=== PATIENT | male | born 1960 | race Caucasian/White ===

== ENCOUNTER 2017-10-14 08:19 | Day surgery (SDC) | payer OTHER, BC ==
[~2017-10-14] VITALS: Ht 175.3 cm; Wt 96.2 kg
[~2017-10-14 08:19] MED LIST: ASPI325; ATOR10; Depo-Testos200 MG/ML; LIPIODOL10 ML; Metamucil Smooth1 EA
== END 2017-10-14 10:41 | disposition home or self-care (01) ==
LOC: ORSCSDS 08:19
PROVIDERS: Internal Medicine Gastroenterology
PROC: 0DBM8ZX Excision of Descending Colon, Via Natural or Artificial Opening Endoscopic, Diagnostic (ICD-10-PCS; principal; 2017-10-14 09:45)
PROC: 0DBH8ZX Excision of Cecum, Via Natural or Artificial Opening Endoscopic, Diagnostic (ICD-10-PCS; principal; 2017-10-14 09:45)
PROC: 0DBK8ZX Excision of Ascending Colon, Via Natural or Artificial Opening Endoscopic, Diagnostic (ICD-10-PCS; principal; 2017-10-14 09:45)
PROC: 0DBL8ZX Excision of Transverse Colon, Via Natural or Artificial Opening Endoscopic, Diagnostic (ICD-10-PCS; principal; 2017-10-14 09:45)
PROC: 0DB58ZX Excision of Esophagus, Via Natural or Artificial Opening Endoscopic, Diagnostic (ICD-10-PCS; 2017-10-14 09:45)
DX: K21.9 Gastro-esophageal reflux disease without esophagitis (principal); D12.3 Benign neoplasm of transverse colon; D12.2 Benign neoplasm of ascending colon; D12.4 Benign neoplasm of descending colon; D12.0 Benign neoplasm of cecum; K57.30 Diverticulosis of large intestine without perforation or abscess without bleeding; K44.9 Diaphragmatic hernia without obstruction or gangrene; K20.9 Esophagitis, unspecified; K31.5 Obstruction of duodenum; K64.8 Other hemorrhoids; Z12.11 Encounter for screening for malignant neoplasm of colon; Z80.0 Family history of malignant neoplasm of digestive organs; F17.220 Nicotine dependence, chewing tobacco, uncomplicated; K74.60 Unspecified cirrhosis of liver; G47.30 Sleep apnea, unspecified; E78.5 Hyperlipidemia, unspecified; Z79.82 Long term (current) use of aspirin; Z79.899 Other long term (current) drug therapy
CPT/HCPCS: 88305; 88342; J2405; J7120

== ENCOUNTER 2018-06-27 06:41 | Day surgery (SDC) | payer OTHER, BC ==
--- NOTE | 2018-06-27 09:36 | NUR ---
PT INTO STEP VIA OTIS. A&OX3. VS WDL. PT STATES PAIN TO RIGHT CHEST WALL 2/10 WHICH IS "BEARABLE." BANDAIDE INTACT TO RIGHT CHEST. NO BLEEDING OR HEMATOMA. MIKAL INITIATED.
--- NOTE | 2018-06-27 10:12 | NUR ---
UP TO BRP WITHOUT DIFFICULTY. RIGHT CHEST WALL BANDAIDE REMAINS C/D/I.
--- NOTE | 2018-06-27 10:35 | NUR ---
DR. WETZEL AT BEDSIDE. UPDATED TO CURRENT VS AND STATUS. MD MADE AWARE THAT PT HAS BEEN HYPERTENSIVE. NO NEW ORDERS AT THIS TIME.
--- NOTE | 2018-06-27 11:31 | NUR ---
Patient up to Ambulate independently. Gait steady. Discharge instructions reviewed with patient. Patient verbalizes understanding. Copy given to patient to take home. Discharged via wheelchair to private car for ride home.
--- NOTE | 2018-06-30 07:14 | NUR ---
EDITED PROCEDURE FOR PURPOSES OF VERIFICATION.
== END 2018-06-27 11:30 | disposition home or self-care (01) ==
LOC: US 06:41
DX: K75.81 Nonalcoholic steatohepatitis (NASH) (principal); R94.5 Abnormal results of liver function studies
CPT/HCPCS: 47000; 76942; 88307; 88313

== ENCOUNTER 2021-07-10 09:51 | Day surgery (SDC) | payer OTHER, BC ==
[~2021-07-10] VITALS: Ht 175.3 cm; Wt 97.3 kg
[~2021-07-10 09:51] MED LIST changes: +LIVALO2 MG; +OMEP20ER PO
[2021-07-10] MEDS ORDERED: ASPIR 8181 MG (10:34)
== END 2021-07-10 12:20 | disposition home or self-care (01) ==
LOC: ORSCSDS 09:51
PROVIDERS: Internal Medicine Gastroenterology
PROC: 0DBL8ZX Excision of Transverse Colon, Via Natural or Artificial Opening Endoscopic, Diagnostic (ICD-10-PCS; principal; 2021-07-10 11:15)
PROC: 0DBM8ZX Excision of Descending Colon, Via Natural or Artificial Opening Endoscopic, Diagnostic (ICD-10-PCS; principal; 2021-07-10 11:15)
PROC: 0DBK8ZX Excision of Ascending Colon, Via Natural or Artificial Opening Endoscopic, Diagnostic (ICD-10-PCS; principal; 2021-07-10 11:15)
DX: Z12.11 Encounter for screening for malignant neoplasm of colon (principal); Z86.010 Personal history of colon polyps; D12.3 Benign neoplasm of transverse colon; D12.2 Benign neoplasm of ascending colon; D12.4 Benign neoplasm of descending colon; K74.60 Unspecified cirrhosis of liver; K57.30 Diverticulosis of large intestine without perforation or abscess without bleeding; E66.9 Obesity, unspecified; K21.9 Gastro-esophageal reflux disease without esophagitis; Z68.33 Body mass index [BMI] 33.0-33.9, adult; Z79.899 Other long term (current) drug therapy; Z79.82 Long term (current) use of aspirin
CPT/HCPCS: 88305; J2704; J7120

== ENCOUNTER 2024-03-20 09:39 | Day surgery (SDC) | payer OTHER, BC ==
[~2024-03-20] VITALS: Ht 175.3 cm; Wt 92.8 kg
[~2024-03-20 09:39] MED LIST changes: +ASPIR 8181 MG PO; -LIVALO2 MG; +LIVALO2 MG PO; +Lactated Ringer's 1,000 ML IV SCH; +TAMS.4ER PO
[2024-03-20 10:09] VITALS: BP 155/89
--- NOTE | 2024-03-20 10:19 | NUR ---
Ambulatory in Day Surgery History, Chart, Medications and Allergies reviewed before start of procedure. Pre-Op teaching done. Pt verbalizes understanding. Patient States Post-Procedure ride home has been arranged.
[2024-03-20] MEDS ORDERED: propofoL 50 ML IV ONE (10:34)
--- NOTE | 2024-03-20 10:41 | NUR ---
03/20/24 1041 Margaret Maldonado History, Chart, Medications and Allergies reviewed before start of procedure. MONITOR INTACT WITH CONTINUOUS PULSE OXIMETRY, CONTINUOUS END TITAL CO2, AND INTERMITTENT BLOOD PRESSURE. Bite Block Placed. PATIENT DETERMINED TO BE ASA APPROPRIATE FOR PROPOFOL SEDATION PRIOR TO START OF PROCEDURE BY DR. HICKS.
[2024-03-20 11:09] VITALS: BP 97/67
--- NOTE | 2024-03-20 11:09 | NUR ---
PT TO DAY SURGERY STEP DOWN FROM COLONOSCOPY; BEDSIDE REPORT RECEIVED. PT IS SLEEPY, BUT AROSES TO VOICE AND ABLE TO MOVE SELF IN BED. VSS. PT AT BEDSIDE.
--- NOTE | 2024-03-20 11:19 | NUR ---
PT MORE AWAKE, TALKED WITH DR HICKS.
[2024-03-20 11:20] VITALS: BP 112/78
--- NOTE | 2024-03-20 11:27 | NUR ---
PT DECLINES PO FLUIDS.
--- NOTE | 2024-03-20 11:28 | NUR ---
Discharge instructions reviewed with patient. Patient verbalizes understanding. Copy given to patient to take home. Patient States Post-Procedure ride home has been arranged.
--- NOTE | 2024-03-20 11:33 | NUR ---
Patient up to Ambulate independently. Gait steady. Discharged via wheelchair to private car for ride home.
== END 2024-03-20 11:36 | disposition home or self-care (01) ==
LOC: ORSCMMR 09:39 → ORSCSDS 10:30 → ORSCMMR 11:15 → ORSCSDS 11:15 → ORSCMMR 11:36 → ORSCSDS 11:45 → ORSCMMR 14:30
DX: K62.5 Hemorrhage of anus and rectum (principal); K62.7 Radiation proctitis; K57.30 Diverticulosis of large intestine without perforation or abscess without bleeding; K55.20 Angiodysplasia of colon without hemorrhage; D12.4 Benign neoplasm of descending colon; D12.3 Benign neoplasm of transverse colon; K63.5 Polyp of colon; K21.9 Gastro-esophageal reflux disease without esophagitis; Z79.82 Long term (current) use of aspirin; Z79.899 Other long term (current) drug therapy
CPT/HCPCS: 88305; J2704; J7120